=== PATIENT | female | born 1960 | race African-American/Black ===

== ENCOUNTER 2018-08-08 05:43 | Inpatient (IN) ==
[2018-08-08] MEDS ORDERED: ceFAZolin 1,000 MG in SYRINGE 1 EACH IV ONE (06:00)
[2018-08-08] MEDS ORDERED: ceFAZolin 1,000 MG VIAL ONE (06:09)
[2018-08-08] MEDS: LACTATED RINGERS 1,000 ML IV SCH ×3 (06:40→19:24)
[2018-08-08] MEDS ORDERED: PROPOFOL 200 MG/20 ML VIAL IV ONE (10:45)
[2018-08-08] MEDS ORDERED: SEVOFLURANE 1 UNIT/15 MINUTE INH ONE (10:45)
[2018-08-08] MEDS ORDERED: ePHEDrine 50 MG/ML AMP ONE (10:46)
[2018-08-08] MEDS ORDERED: MIDAZOLAM 2 MG/2 ML VIAL ONE (10:46)
[2018-08-08] MEDS ORDERED: ACETAMINOPHEN 1,000 MG/100 ML VIAL IV ONE (10:47)
[2018-08-08] MEDS ORDERED: PHENYLEPHRINE 1 MG/10 ML SYRINGE IV ONE (10:47)
[2018-08-08] MEDS ORDERED: NEOSTIGMINE 10 MG/10 ML VIAL ONE (10:47)
[2018-08-08] MEDS ORDERED: ONDANSETRON 4 MG/2 ML VIAL ONE ×2 (10:47→10:49)
[2018-08-08] MEDS ORDERED: GLYCOPYRROLATE 0.4 MG/2 ML VIAL ONE (10:47)
[2018-08-08] MEDS ORDERED: SUCCINYLCHOLINE 200 MG/10 ML VIAL ONE (10:47)
[2018-08-08] MEDS ORDERED: LACTATED RINGERS 1,000 ML IV ONE (10:47)
[2018-08-08] MEDS ORDERED: ROCURONIUM 100 MG/10 ML VIAL IV ONE (10:47)
[2018-08-08] MEDS ORDERED: HYDROmorphone 2 MG/1 ML VIAL ONE (10:49)
[2018-08-08] MEDS: HYDROmorphone 2 MG/1 ML VIAL IV PRN ×2 (10:50→11:10)
[2018-08-08] MEDS ORDERED: ONDANSETRON 4 MG/2 ML VIAL IV PRN (11:03)
[2018-08-08] MEDS ORDERED: INFLUENZA VIRUS VACCINE 0.5 ML SYRINGE IM ONE (12:33)
[2018-08-08] MEDS: MORPHINE 4 MG/1 ML VIAL IV PRN ×3 (15:19→22:11)
[2018-08-09] MEDS: LACTATED RINGERS 1,000 ML IV SCH ×3 (02:44→19:54)
[2018-08-09] MEDS: MORPHINE 4 MG/1 ML VIAL IV PRN ×3 (04:08→19:36)
[2018-08-09 09:51] LABS: Basophils % 0.3 % (0.0-0.8); Eosinophils % 0.2 % (0.00-10.9); Hematocrit 36.5 VOL% (35.7-47.0); Hemoglobin 12.4 GM/DL (12.0-16.0); Immature Granulocytes % 0.6 %; Immature Granulocytes Absolute 0.07 #; Lymphocytes # 2.1 10*3/uL (1.4-4.0); Lymphocytes % 18.3 % (21.3-54.2); Mean Corpuscular Hemoglobin 30 PG (27-34); Mean Platelet Volume 10.5 FL (9.6-12.0); Monocytes # 0.9 10*3/uL (0.11-0.8); Monocytes % 7.9 % (1.7-12.7); Neutrophils # 8.2 10*3/uL (1.4-7.4); Neutrophils % 72.7 % (38.7-73.9); Platelet Count 269 T/CUMM (130-400); Red Blood Count 4.15 MC/CUMM (3.8-5.5); Red Cell Distribution Width 14.3 % (9.3-17.3); White Blood Count 11.3 T/CUMM (4-12)
[2018-08-10 02:38] LABS: Basophils # 0.1 10*3/uL (0.0-0.2); Basophils % 0.6 % (0.0-0.8); Eosinophils # 0.2 10*3/uL (0.0-0.87); Hematocrit 30.9 VOL% (35.7-47.0); Hemoglobin 10.2 GM/DL (12.0-16.0); Immature Granulocytes % 0.8 %; Immature Granulocytes Absolute 0.07 #; Lymphocytes % 22.8 % (21.3-54.2); Mean Corpuscular Hemoglobin 30 PG (27-34); Mean Corpuscular Volume 89.8 FL (87-102); Mean Platelet Volume 11.3 FL (9.6-12.0); Monocytes # 0.8 10*3/uL (0.11-0.8); Monocytes % 8.8 % (1.7-12.7); Neutrophils # 5.6 10*3/uL (1.4-7.4); Platelet Count 162 T/CUMM (130-400); Red Blood Count 3.44 MC/CUMM (3.8-5.5); Red Cell Distribution Width 14.2 % (9.3-17.3); White Blood Count 8.6 T/CUMM (4-12)
[2018-08-10] MEDS: LACTATED RINGERS 1,000 ML IV SCH ×4 (03:46→21:36)
[2018-08-10] MEDS: traMADol 50 MG TABLET PO PRN ×3 (10:26→22:19)
[2018-08-11] MEDS: LACTATED RINGERS 1,000 ML IV SCH (03:54)
[2018-08-11] MEDS: traMADol 50 MG TABLET PO PRN ×3 (09:35→21:24)
[2018-08-12] MEDS: traMADol 50 MG TABLET PO PRN ×3 (07:10→21:11)
[2018-08-13] MEDS ORDERED: LEVOTHYROXINE 200 MCG TABLET PO SCH (06:30)
[2018-08-13] MEDS ORDERED: ATORVASTATIN 20 MG TABLET PO SCH (09:00)
[2018-08-13] MEDS ORDERED: CYANOCOBALAMIN 500 MCG TABLET PO SCH (09:00)
[2018-08-13] MEDS ORDERED: TRIAMTERENE/HCTZ 37.5-25 MG TABLET PO SCH (09:00)
[2018-08-13] MEDS: traMADol 50 MG TABLET PO PRN (09:39)
[2018-08-13 12:54] VITALS: BP 120/67
[2018-08-13] MEDS ORDERED: HEPARIN LOCK FLUSH 500 UNIT/5 ML SYRINGE IV ONE (14:27)
== END 2018-08-13 15:30 | disposition home or self-care (01) | DRG 585 ==
LOC: N.SDSINP 05:43 → N.4E 09:55
PROVIDERS: ADMIT Specialist; ATTEND Specialist